=== PATIENT | male | born 1985 | race African-American/Black ===

== ENCOUNTER 2021-11-13 07:19 | Day surgery (SDC) | payer BC ==
[2021-11-07 15:13] VITALS: BMI 20.9
[2021-11-13] MEDS ORDERED: Acetaminophen 500 MG TAB ONE (08:47)
[2021-11-13] MEDS ORDERED: Ketorolac Tromethamine 30 MG/ML VIAL ONE (08:47)
[2021-11-13] MEDS ORDERED: Fentanyl 100 MCG/2 ML VIAL ONE (10:18)
[2021-11-13] MEDS ORDERED: Bupivacaine 0.25% HCL 30 ML VIAL ONE (10:24)
[2021-11-13] MEDS ORDERED: Lidocaine 1% w/Epinephrine 1:100K 20 ML VIAL ONE (10:24)
[2021-11-13] MEDS ORDERED: ceFAZolin (BATCH) 2 GM/100 ML BAG ONE (10:33)
[2021-11-13] MEDS ORDERED: Lidocaine 1% PF 5 ML VIAL ONE (10:44)
[2021-11-13] MEDS ORDERED: Rocuronium Bromide 10 MG/ML (10ML VIAL) ONE (10:44)
[2021-11-13] MEDS ORDERED: Dexamethasone 20 MG/5 ML VIAL ONE (10:44)
[2021-11-13] MEDS ORDERED: ePHEDrine 50 MG/ML VIAL ONE (10:44)
[2021-11-13] MEDS ORDERED: PROPOFOL 200 MG/20 ML VIAL ONE (10:44)
[2021-11-13] MEDS ORDERED: Glycopyrrolate 0.2 MG/ML 5 ML SYRINGE ONE (10:44)
[2021-11-13] MEDS ORDERED: Ondansetron PF 4 MG/2 ML Vial ONE (10:44)
== END 2021-11-13 14:23 | disposition home or self-care (01) ==
LOC: SDC 07:19
PROVIDERS: ATTEND Specialist
PROC: 07BH0ZX Excision of Right Inguinal Lymphatic, Open Approach, Diagnostic (ICD-10-PCS; principal; 2021-11-13)
DX: R59.0 Localized enlarged lymph nodes (principal); K40.90 Unilateral inguinal hernia, without obstruction or gangrene, not specified as recurrent
CPT/HCPCS: 88184; 88305; 88342; J0690; J1100; J1885; J2405; J2704; J3010; J3490; S0020

== ENCOUNTER 2022-01-14 09:41 | Outpatient (CLI) | payer BC ==
[2022-01-14 10:35] LABS: Hemoglobin 14.2 g/dL (13.5-17.5); Mean Corpuscular HGB CONC 32.4 g/dL (32.0-36.0); Mean Corpuscular Volume 83.3 fl (81.2-95.1); Platelet Count 234 10x3/uL (150-450); Red Blood Cell (RBC) Count 5.26 10x6/uL (4.32-5.72); White Blood Cell (WBC) Count 4.6 10x3/uL (3.5-10.5)
[2022-01-14 10:44] LABS: Anion Gap 13 mmol/L (10-20); BUN (Urea Nitrogen) 14 mg/dL (8.9-20.6); Calc. Creatinine Clearance 0 mL/min (70-130); Calcium 9.4 mg/dL (7.8-10.44); Carbon Dioxide 28 mmol/L (22-29); Chloride 104 mmol/L (98-107); Glucose 91 mg/dL (70-105); Sodium 141 mmol/L (136-145)
[2022-01-14 11:01] LABS: MDiff Complete? YES
[2022-01-14 11:07] LABS: Eosinophils 1 % (0-10); Lymphocytes 57 % (21-51); Monocytes 14 % (0-10); Neutrophil 28 % (42-75)
[2022-01-14 11:08] LABS: Platelet Morphology Comment Appears Adequate
[2022-01-14 11:09] LABS: RBC Morphology Normal
== END 2022-01-14 09:42 | disposition home or self-care (01) ==
LOC: LABBT 09:41
PROVIDERS: ATTEND Specialist
DX: Z01.812 Encounter for preprocedural laboratory examination (principal); K40.90 Unilateral inguinal hernia, without obstruction or gangrene, not specified as recurrent; Z20.822 Contact with and (suspected) exposure to COVID-19
CPT/HCPCS: 80048; 85025; U0003; U0005

== ENCOUNTER 2022-01-17 05:38 | Day surgery (SDC) | payer BC ==
[2022-01-15 10:54] VITALS: BMI 20.9
[2022-01-17] MEDS ORDERED: Acetaminophen 500 MG TAB ONE (06:08)
[2022-01-17] MEDS ORDERED: Ketorolac Tromethamine 30 MG/ML VIAL ONE (06:08)
[2022-01-17] MEDS ORDERED: Lidocaine 1% w/Epinephrine 1:100K 30 ML VIAL ONE (06:45)
[2022-01-17] MEDS ORDERED: Bupivacaine 0.25% HCL 30 ML VIAL ONE (06:45)
[2022-01-17] MEDS ORDERED: SUGAMMADEX SODIUM 200 MG/2 ML VIAL ONE (06:52)
[2022-01-17] MEDS ORDERED: fentaNYL Citrate/PF 100 MCG/2 ML SYRINGE ONE (06:52)
[2022-01-17] MEDS ORDERED: Sodium Chloride 0.9% 100 ML ONE (07:22)
[2022-01-17] MEDS ORDERED: CEFAZOLIN 2 GM VIAL ONE (07:22)
[2022-01-17] MEDS ORDERED: HYDROcodone/Acetaminophen 5/325 mg Tablet ONE (11:00)
== END 2022-01-17 11:52 | disposition home or self-care (01) ==
LOC: SDC 05:38
PROVIDERS: ATTEND Specialist
PROC: 0YQ54ZZ Repair Right Inguinal Region, Percutaneous Endoscopic Approach (ICD-10-PCS; principal; 2022-01-17)
PROC: 07TH4ZZ Resection of Right Inguinal Lymphatic, Percutaneous Endoscopic Approach (ICD-10-PCS; principal; 2022-01-17)
DX: K40.90 Unilateral inguinal hernia, without obstruction or gangrene, not specified as recurrent (principal); R59.1 Generalized enlarged lymph nodes
CPT/HCPCS: 88184; 88307; C1781; J0690; J1885; J3490; S0020

== ENCOUNTER 2023-03-15 00:38 | Observation (INO) | payer OTHER, BC ==
[2023-03-15] MEDS ORDERED: Acetaminophen 500 MG TAB ONE (03:29)
[2023-03-15] MEDS ORDERED: traMADol HCl 50 MG TAB ONE ×2 (03:29→03:30)
[2023-03-15] MEDS ORDERED: traMADol HCl 50 MG TAB PO PRN ×2 (03:47)
[2023-03-15] MEDS ORDERED: Glucagon 1 MG/ML KIT IM PRN (03:47)
[2023-03-15] MEDS ORDERED: Ondansetron PF 4 MG/2 ML Vial IVP PRN (03:47)
[2023-03-15] MEDS ORDERED: hydrALAZINE 20 MG/ML VIAL SLOW IVP PRN (03:47)
[2023-03-15] MEDS ORDERED: Dextrose 50% Abboject 50 ML SYRINGE SLOW IVP PRN (03:47)
[2023-03-15] MEDS ORDERED: Ondansetron ODT 4 MG TAB PO PRN (03:47)
[2023-03-15] MEDS ORDERED: Dextrose 5% in Water 1,000 ML IV PRN (03:47)
[2023-03-15] MEDS ORDERED: Cyclobenzaprine 10 MG TAB PO PRN (03:49)
[2023-03-15] MEDS ORDERED: Sodium Chloride 0.9% 1,000 ML IV SCH (05:00)
[2023-03-15] MEDS ORDERED: Acetaminophen 500 MG TAB PO SCH ×2 (06:00→09:00)
[2023-03-15 06:20] LABS: #Monocytes 0.7 thou/uL (0.11-0.59); #Neutrophils 5.8 thou/uL (1.40-6.50); %Basophils 0.1 % (0.0-1.0); %Lymphocytes 11.7 % (21.0-51.0); %Monocytes 9.5 % (0.0-10.0); %Neutrophils 78.4 % (42.0-75.0); Hematocrit 39.8 % (42.0-52.0); Hemoglobin 13.1 g/dL (14.0-18.0); Mean Corpuscular HGB CONC 32.9 g/dL (32.0-36.0); Mean Corpuscular Hemoglobin 28.1 pg (27.0-31.0); Mean Corpuscular Volume 85.2 fl (78.0-98.0); Mean Platelet Volume 9.1 fL (7.4-10.4); Platelet Count 247 10x3/uL (130-400); RBC Distribution Width 14.2 % (11.5-14.5); Red Blood Cell (RBC) Count 4.67 mill/uL (4.70-6.10); White Blood Cell (WBC) Count 7.4 10x3/uL (4.8-10.8)
[2023-03-15 06:43] LABS: Anion Gap 11 mmol/L (10-20); BUN (Urea Nitrogen) 15 mg/dL (8.9-20.6); Calc. Creatinine Clearance 102 mL/min (70-130); Calcium 8.9 mg/dL (7.8-10.44); Carbon Dioxide 25 mmol/L (22-29); Chloride 108 mmol/L (98-107); Estimated GFR 93; Glucose 111 mg/dL (70-105); Potassium 3.9 mmol/L (3.5-5.1); Sodium 140 mmol/L (136-145)
[2023-03-15] MEDS ORDERED: Famotidine 20 MG TAB PO SCH (09:00)
[2023-03-15] MEDS ORDERED: fentaNYL 50 mcg/mL 1 mL Vial ONE ×2 (13:22→14:12)
[2023-03-15] MEDS ORDERED: CEFAZOLIN 2 GM VIAL ONE (13:22)
[2023-03-15] MEDS ORDERED: Sodium Chloride 0.9% 100 ML ONE (13:23)
[2023-03-15] MEDS ORDERED: Famotidine/PF 20 mg/2ml Vial ONE (14:13)
[2023-03-15] MEDS ORDERED: Ketorolac Tromethamine 30 MG/ML VIAL ONE (14:17)
[2023-03-15] MEDS ORDERED: Metoclopramide HCl 10 MG/2 ML VIAL ONE (14:17)
[2023-03-15] MEDS ORDERED: Glycopyrrolate 0.2 MG/ML 5 ML SYRINGE ONE (14:17)
[2023-03-15] MEDS ORDERED: ePHEDrine Sulfate 50 MG/10 ML VIAL ONE (14:17)
[2023-03-15] MEDS ORDERED: PROPOFOL 200 MG/20 ML VIAL ONE (14:17)
[2023-03-15] MEDS ORDERED: PHENYLEPHRINE-NS 100 MCG/ML 10 ML SYRINGE ONE (14:17)
[2023-03-15] MEDS ORDERED: Lidocaine 1% PF 5 ML VIAL ONE (14:17)
[2023-03-15] MEDS ORDERED: Ondansetron PF 4 MG/2 ML Vial ONE (14:17)
[2023-03-15] MEDS ORDERED: Dexamethasone 20 MG/5 ML VIAL ONE (14:17)
[2023-03-15] MEDS ORDERED: Promethazine HCl 25 MG/ML VIAL IM PRN (14:53)
[2023-03-15] MEDS ORDERED: Meperidine HCl/PF 25 MG/ML VIAL SLOW IVP PRN (14:53)
[2023-03-15] MEDS ORDERED: Ondansetron HCl/PF 4 MG/2 ML Vial IVP PRN (14:53)
[2023-03-15] MEDS ORDERED: Communication Order-Pharmacy FS SCH (15:30)
[2023-03-15 20:00] VITALS: BP 105/66; TEMP 97.7
== END 2023-03-15 19:50 | disposition home or self-care (01) ==
LOC: ERS 00:38 → SURG B 01:00
PROVIDERS: ADMIT Surgery; ATTEND Surgery
PROC: 0MDN0ZZ Extraction of Right Knee Bursa and Ligament, Open Approach (ICD-10-PCS; principal; 2023-03-15)
DX: S81.021A Laceration with foreign body, right knee, initial encounter (principal); V86.55XA Driver of 3- or 4- wheeled all-terrain vehicle (ATV) injured in nontraffic accident, initial encounter
CPT/HCPCS: 36415; 80048; 85025; 99284; G0378; G0390; J1100; J1885; J2405; J2704; J2765; J3010; J3490; J7050; S0028